=== PATIENT | male | born 2000 | race Caucasian/White ===

== ENCOUNTER 2020-08-05 16:37 | Emergency (ER) | payer BC ==
[~2020-08-05] VITALS: Ht 170.2 cm; Wt 59.0 kg
--- NOTE | 2020-08-05 17:40 | EKG ---
[address] [address] Test Date: 2020-08-05 Test Time: 16:53:29 Pat Name: SEAN OROSCO Department: Room: Gender: M Mexican Food Cook: DARIEL : 2000 Requested By: SHERRY BEACH Order Number: [id number] Reading MD: Measurements Intervals [place] Rate: 95 P: 61 OR: 142 QRS: 80 QRSD: 96 T: 24 QT: 334 QTc: 423 Interpretive Statements SINUS RHYTHM NORMAL ECG RI6.02 No previous ECG available for comparison
--- NOTE | 2020-08-05 18:00 | PHYS DOC ---
Past History Past Medical History: No Pertinent History Alcohol Use: Occasionally General Adult EDM: Chief Complaint: CHEST PAIN HPI: HPI: Patient is a 20-year-old male who presents to the emergency room with mid sternal chest pain. Patient reports that the pain has been constant but quit about 10 minutes ago. Pain started about 1530 today when he was getting in the shower. Patient did report some shortness of breath during the chest pain. Denies dizziness. Patient is a current daily smoker. Patient reports that his dad had a pacemaker placed in his 20s but unsure why. Patient states he had vomiting and diarrhea 2 days ago but symptoms resolved that same day. Patient denies taking anything for the pain. "I feel like this chest pain comes and goes and when I push on my chest it seems to feel better, but I do not know what that shows to my head". Patient denies change in pain with movement. Denies health history. Review of Systems: Review of Systems: Constitutional: Denies fever or chills Eyes: Denies change in visual acuity HENT: Denies nasal congestion or sore throat Respiratory: Denies cough, reports shortness of breath Cardiovascular: Reports midsternal chest pain, denies edema GI: Denies abdominal pain, nausea, vomiting, bloody stools or diarrhea : Denies dysuria Musculoskeletal: Denies back pain or joint pain Integument: Denies rash Neurologic: Denies headache, focal weakness or sensory changes Endocrine: Denies polyuria or polydipsia Lymphatic: Denies swollen glands Psychiatric: Denies depression or anxiety Allergies: Allergies: Allergies Coded Allergies Type Severity Reaction Last Updated Verified Penicillins Allergy Unknown 08/05/20 Yes Physical Exam: PE: Constitutional: Well developed, well nourished, no acute distress, non-toxic appearance. [] HENT: Normocephalic, atraumatic, bilateral external ears normal, oropharynx moist, no oral exudates, nose normal. [] Eyes: PERRLA, conjunctiva normal, no discharge. [] Neck: Normal range of motion, no tenderness, supple, no stridor. [] Cardiovascular:Heart rate regular rhythm, no murmur [] Lungs & Thorax: Bilateral breath sounds clear to auscultation Abdomen: Bowel sounds normal, soft, no tenderness, no masses, no pulsatile masses. Skin: Warm, dry, no erythema, no rash. [] Back: No tenderness, no CVA tenderness. [] Extremities: No tenderness, no cyanosis, no clubbing, ROM intact, no edema. [] Neurologic: Alert and oriented X 3, normal motor function, normal sensory function, no focal deficits noted. [] Psychologic: Affect normal, judgement normal, mood normal. [] Current Patient Data: Vital Signs: Vital Signs Date Time Temp Pulse Resp B/P (MAP) Pulse Ox O2 Delivery O2 Flow Rate FiO2 08/05/20 16:50 98.2 95 16 133/79 (97) 98 Room Air EKG: EKG: [] Radiology/Procedures: Radiology/Procedures: [] Heart Score: C/O Chest Pain: Yes HEART Score for Chest Pain: HEART Score for Chest Pain Response (Comments) Value History Slighlty/Non-Suspicious 0 ECG Normal 0 Age < 45 0 Risk Factors 1 or 2 Risk Factors 1 Troponin < Normal Limit 0 Total 1 Risk Factors: Risk Factors: DM, Current or recent (<one month) smoker, HTN, HLP, family history of CAD, obesity. Risk Scores: Score 0 - 3: 2.5% MACE over next 6 weeks - Discharge Home Score 4 - 6: 20.3% MACE over next 6 weeks - Admit for Clinical Observation Score 7 - 10: 72.7% MACE over next 6 weeks - Early Invasive Strategies Course & Med Decision Making: Course & Med Decision Making Pertinent Labs and Imaging studies reviewed. (See chart for details) [] Patient presents to the emergency room with chest pain, midsternal, sharp. Patient's pain started at 3:30 PM but resolved while in the emergency room. Patient is a daily smoker. And also smokes marijuana. Patient is denying any pain at this time. Troponin is negative. Labs are unremarkable. Heart score of 1. Chest x-ray is negative for any acute abnormalities. Patient is hemodynamically stable. Discharging patient to home and follow-up with PCP. Patient most likely has chest wall pain. I gave patient resources for a list of doctors he could follow-up with and establish care. Patient was appreciative and okay with plan. Patient is to return to the emergency room with worsening symptoms or concerns. Dragon Disclaimer: Rajni Disclaimer: This electronic medical record was generated, in whole or in part, using a voice recognition dictation system. Departure Departure: Impression: Primary Impression: Chest wall pain Disposition: 01 DC HOME SELF CARE/HOMELESS Condition: STABLE Referrals: PCP,UNKNOWN (PCP) Patient Instructions: Chest Wall Pain, [id number] Additional Instructions: You were seen in the emergency room for chest pain that resolved once you were in the ER. Your chest x-ray was negative for any acute abnormalities. All of your lab work was unremarkable. Please follow-up with your PCP for further management. Return to the emergency room with worsening symptoms or concerns. EMERGENCY DEPARTMENT GENERAL DISCHARGE INSTRUCTIONS Thank you for coming to [facility] (ED) today and trusting us with you care. We trust that you had a positivie experience in our Emergency Department. If you wish to speak to the department management, you may call the director at [phone]. YOUR FOLLOW UP INSTRUCTIONS ARE FOLLOWS: 1. Do you have a private Doctor? If you do not have a private doctor, please ask for a resource list of physicians or clinics that may be able to assist you with follow up care. 2. The Emergency Physician has interpreted your x-rays. The X-Ray specialist will also review them. If there is a change in the findings, you will be notified in 48 hours when at all possible. 3. A lab test or culture has been done, your results will be reviewed and you will be notified if you need a change in treatment. ADDITIONAL INSTRUCTIONS AND INFORMATION: 1. Your care today has been supervised by a physician who is specially trained in emergency care. Many problems require more than one evaluation for a complete diagnosis and treatment. We recommend that you schedule your follow up appointment as recommended to ensure complete treatment of you illness or injury. If you are unable to obtain follow up care and continue to have a problem, or if your condition worsens, we recommend that you return to the ED. 2. We are not able to safely determine your condition over the phone nor are we able to give sound medical advice over the phone. For these safety reasons, if you call for medical advice we will ask you to come to the ED for further evaluation. 3. If you have any questions regarding these discharge instructions please call the ED at [phone]. SAFETY INFORMATION: In the interest of safety, wellness, and injury prevention; we encourage you to wear your sealbelt, if you smoke; quite smoking, and we encourage family to use a protective helmet for bicycling and other sporting events that present an increased risk for head injury. IF YOUR SYMPTOMS WORSEN OR NEW SYMPTOMS DEVELOP, OR YOU HAVE CONCERNS ABOUT YOUR CONDITION; OR IF YOUR CONDITION WORSENS WHILE YOU ARE WAITING FOR YOUR FOLLOW UP JOZEF OINTMENT; EITHER CONTACT YOUR PRIMARY CARE DOCTOR, THE PHYSICIAN WHOSE NAME AND NUMBER YOU WERE GIVEN, OR RETURN TO THE ED IMMEDIATELY. SHERRY BEACH APRN Aug 05, 2020 18:00
[2020-08-05 18:03] LABS: BASO % 0 % (0-3); EOS # 0.1 x10^3/uL (0.0-0.7); EOS % 1 % (0-3); HEMATOCRIT 47.4 % (39.0-53.0); HEMOGLOBIN 16.5 g/dL (13.0-17.5); LYMPH # 1.3 x10^3/uL (1.0-4.8); LYMPH % 21 % (24-48); MEAN CORPUSCULAR HEMOGLOBIN 30 pg (25-35); MEAN CORPUSCULAR HGB CONC 35 g/dL (31-37); MEAN CORPUSCULAR VOLUME 85 fL (79-100); MONO # 0.7 x10^3/uL (0.0-1.1); MONO % 11 % (0-9); NEUT # 4.2 x10^3uL (1.8-7.7); NEUT % 66 % (31-73); PLATELET COUNT 225 x10^3/uL (140-400); RED BLOOD COUNT 5.56 x10^6/uL (4.30-5.70); RED CELL DISTRIBUTION WIDTH 13.6 % (11.5-14.5); WHITE BLOOD COUNT 6.3 x10^3/uL (4.0-11.0)
[2020-08-05 18:12] LABS: CALCIUM 8.7 mg/dL (8.5-10.1); CREATININE 1.2 mg/dL (0.7-1.3); GFR 76.4; POTASSIUM 3.5 mmol/L (3.5-5.1)
--- NOTE | 2020-08-05 18:48 | RAD ---
Single view chest dated 08/05/2020: No comparison available. Clinical Indication: Chest pain. Findings: Single upright portable exam of the chest was performed. Heart size and mediastinal contours are with in normal limits given technique. The lungs are clear without evidence of focal consolidation. Vascul ar interstitium is within normal limits. Impression:: Negative portable chest. Electronically signed by: Robert Amaya MD (08/05/2020 6:45 PM) DI
[2020-08-05 19:23] VITALS: BP 124/52
== END 2020-08-05 19:20 | disposition home or self-care (01) ==
LOC: ER 16:37
DX: R07.2 Precordial pain (principal); R06.02 Shortness of breath; Z95.0 Presence of cardiac pacemaker; F17.200 Nicotine dependence, unspecified, uncomplicated; Z88.0 Allergy status to penicillin
CPT/HCPCS: 36415; 71045; 80048; 84484; 85025; 93005; 99285-25

== ENCOUNTER 2020-08-10 20:47 | Emergency (ER) | payer BC ==
[~2020-08-10] VITALS: Ht 182.9 cm; Wt 74.9 kg
[2020-08-10] MEDS ORDERED: NAPR375T5 PO (21:14)
[2020-08-10] MEDS ORDERED: ORPH-16 PO (21:14)
--- NOTE | 2020-08-10 21:14 | PHYS DOC ---
Past History Past Medical History: No Pertinent History Past Surgical History: No Surgical History Smoking: Cigarettes Alcohol Use: Occasionally Drug Use: Marijuana General Adult EDM: Chief Complaint: CHEST PAIN HPI: HPI: Patient is a [age] year old [sex] who presents with [] Review of Systems: Review of Systems: Constitutional: Denies fever or chills Eyes: Denies redness or eye pain HENT: Denies nasal congestion or sore throat Respiratory: Denies cough or shortness of breath Cardiovascular: Reports chest pain; denies palpitations GI: Denies abdominal pain, nausea, or vomiting : Denies dysuria or hematuria Musculoskeletal: Denies back pain or joint pain Integument: Denies rash or skin lesions Neurologic: Denies headache, focal weakness or sensory changes Complete systems were reviewed and found to be within normal limits, except as documented in this note. Current Medications: Current Meds: Current Medications Medications (Trade) Dose Ordered Sig/Ivana Start Time Stop Time Status Last Admin Dose Admin Dexamethasone (Decadron) 10 mg 1X ONCE 08/10/20 21:15 08/10/20 21:16 UNV Orphenadrine Citrate (Norflex) 60 mg 1X ONCE 08/10/20 21:15 08/10/20 21:16 UNV Allergies: Allergies: Allergies Coded Allergies Type Severity Reaction Last Updated Verified Penicillins Allergy Unknown 08/05/20 Yes Physical Exam: PE: Constitutional: Well developed, well nourished, no acute distress, non-toxic appearance HENT: Normocephalic, atraumatic Eyes: Conjunctiva normal, no discharge Neck: Normal range of motion, supple Lungs & Thorax: No respiratory distress, equal chest rise and fall, left chest wall pain which is worse with palpation Abdomen: Soft, no tenderness Skin: Warm, dry, no erythema, no rash Extremities: No calf tenderness, ROM intact, no edema Neurologic: Alert and oriented X 3, no focal deficits noted Psychologic: Affect anxious, judgment normal EKG: EKG: @2058 NSR at 79bpm, NO ST elevation, QRS 98ms, QT/QTc 354/407ms Radiology/Procedures: Radiology/Procedures: [] Heart Score: C/O Chest Pain: Yes HEART Score for Chest Pain: HEART Score for Chest Pain Response (Comments) Value History Slighlty/Non-Suspicious 0 ECG Normal 0 Age < 45 0 Risk Factors 1 or 2 Risk Factors 1 Total 1 Risk Factors: Risk Factors: DM, Current or recent (<one month) smoker, HTN, HLP, family history of CAD, obesity. Risk Scores: Score 0 - 3: 2.5% MACE over next 6 weeks - Discharge Home Score 4 - 6: 20.3% MACE over next 6 weeks - Admit for Clinical Observation Score 7 - 10: 72.7% MACE over next 6 weeks - Early Invasive Strategies Course & Med Decision Making: Course & Med Decision Making Pertinent Imaging studies reviewed. (See chart for details) Patient presents with HPI and physical exam concerning for chest wall pain. Patient had been seen on 08/05/20 for same. Labs reviewed from prior visit. Troponin within normal limits at that time. Chest x-ray also stable from previous. EKG today without acute process. Patient with extremely low cardiac risk factors-primarily given age and lack of cocaine abuse. Chest x-ray without acute process. PERC negative. Symptomatic treatment provided. Patient stable for discharge with outpatient follow-up with PCP. Discussed findings and plan with patient and family, who acknowledge understanding and agreement. Rajni Disclaimer: Rajni Disclaimer: This electronic medical record was generated, in whole or in part, using a voice recognition dictation system. PERC Rule for PE PERC Rule for PE Response (Comments) Value Age > 50: No 0 HR > 100: No 0 Sa02 on room air <95%: No 0 Unilateral leg swelling: No 0 Hemoptysis: No 0 Recent surgery or trauma: No 0 Prior PE or DVT: No 0 Hormone use: No 0 Total 0 Departure Departure: Impression: Primary Impression: Chest wall pain Disposition: HOME SELF CARE/HOMELESS Condition: STABLE Referrals: PCP,UNKNOWN (PCP) Patient Instructions: Chest Wall Pain, [id number] Scripts Naproxen (NAPROXEN) 375 Mg Tablet. 375 MG PO TID PRN PRN for PAIN, #20 TAB Prov: FORTUNATO TAN DO 08/10/20 Orphenadrine Citrate (ORPHENADRINE CITRATE) 100 Mg Tablet.er 1 TAB PO BID PRN for MUSCLE PAIN, #14 TAB 0 Refills Prov: FORTUNATO TAN DO 08/10/20 FORTUNATO TAN DO Aug 10, 2020 21:14
[2020-08-10] MEDS ORDERED: ORPHENADRINE CITRATE 60 MG/2 ML VIAL. IM ONE (21:15)
[2020-08-10] MEDS ORDERED: DEXAMETHASONE 4 MG TABLET PO ONE (21:15)
--- NOTE | 2020-08-10 21:36 | RAD ---
Exam: Chest 2 views INDICATION: Chest wall pain TECHNIQUE: Frontal and lateral views the chest Comparisons: 08/05/2020 FINDINGS: The cardiomediastinal silhouette and pulmonary vessels are within normal limits. The lung and pleural spaces are clear. IMPRESSION: No acute cardiopulmonary process. Electronically signed by: Don Leyva MD (08/10/2020 9:34 PM) GABY
[2020-08-10 21:40] VITALS: BP 128/71
--- NOTE | 2020-08-10 23:54 | EKG ---
[address] [address] Test Date: 2020-08-10 Test Time: 20:58:54 Pat Name: SEAN OROSCO Department: Room: Gender: M Transfer Coordinator: : 2000 Requested By: FORTUNATO TAN Order Number: [id number] Reading MD: Measurements Intervals [place] Rate: 79 P: [place]: QRS: 125 QRSD: 98 T: 98 QT: 354 QTc: 407 Interpretive Statements IRREGULAR RHYTHM, NO P-WAVE FOUND ABNORMAL RIGHT AXIS DEVIATION LOW LIMB LEAD VOLTAGE QRS(T) CONTOUR ABNORMALITY CONSISTENT WITH HIGH LATERAL INFARCT AGE UNDETERMINED ABNORMAL ECG RI6.02 No previous ECG available for comparison
== END 2020-08-10 21:40 | disposition home or self-care (01) ==
LOC: ER 20:47
DX: R07.89 Other chest pain (principal); R00.2 Palpitations; F17.210 Nicotine dependence, cigarettes, uncomplicated; Z88.0 Allergy status to penicillin
CPT/HCPCS: 71046; 93005; 96372; 99283; J2360; J8540

== ENCOUNTER 2020-11-03 10:56 | Emergency (ER) | payer BC ==
[~2020-11-03] VITALS: Ht 182.9 cm; Wt 74.0 kg
[~2020-11-03 10:56] MED LIST: NAPR375T5 PO; ORPH-16 PO
[2020-11-03 11:27] VITALS: BP 137/94
--- NOTE | 2020-11-03 12:13 | RAD ---
EXAM: Right long finger, 3 views. HISTORY: Blunt trauma. COMPARISON: None. FINDINGS: 3 views of the right long finger are obtained. There is no fracture, dislocation or subluxa tion. There is no radiodense foreign body. There is incidental sclerosis involving the radial aspect of the fourth distal phalanx likely due to a bone island or melorheostosis. There is no suspicious os seous lesion. IMPRESSION: No acute osseous finding. Electronically signed by: Zayda Marquez MD (11/03/2020 12:10 PM) [id number]
--- NOTE | 2020-11-03 13:01 | PHYS DOC ---
Past History Past Medical History: No Pertinent History Additional Past Medical Histor: ADHD (CHIP RAMÍREZ APRN) Past Surgical History: No Surgical History (CHIP RAMÍREZ APRN) Smoking: Cigarettes Alcohol Use: Occasionally Drug Use: Marijuana (CHIP RAMÍREZ APRN) General Adult EDM: Chief Complaint: FINGER INJURY HPI: HPI: Patient is a 20-year-old male who presents to the ER today for right third finger injury after a rock fell onto his finger yesterday. Patient reports that the pain is constant, does not radiate, he rates it 7 out of 10, no treatment today but yesterday he reports that he took a muscle relaxer and ibuprofen. Patient denies any other injuries, denies difficulty moving finger, severe swelling. (CHIP RAMÍREZ APRN) Review of Systems: Review of Systems: 14 body systems of the review of systems have been reviewed. See HPI for pertinent positive and negative responses, otherwise all other systems are negative, nonpertinent or noncontributory (CHIP RAMÍREZ APRN) Allergies: Allergies: Allergies Coded Allergies Type Severity Reaction Last Updated Verified Penicillins Allergy Unknown 08/05/20 Yes (CHIP RAMÍREZ APRN) Physical Exam: PE: Constitutional: Well developed, well nourished, no acute distress, non-toxic appearance. [] HENT: Normocephalic, atraumatic [] Eyes: PERRL [] Neck: Normal range of motion, no tenderness, supple, no stridor. [] Cardiovascular: Normal peripheral perfusion Lungs & Thorax: No work of breathing, no tachypnea [] Skin: Warm, dry, no erythema, no rash, mild ecchymosis noted to the tip of patient's right third finger proximal to DIP joint [] Back: No tenderness [] Extremities: No tenderness, no cyanosis, no clubbing, ROM intact, no edema. Right third finger: No swelling, range of motion intact, neuro intact, nailbed intact. [] Neurologic: Alert and oriented X 3, normal motor function, normal sensory function, no focal deficits noted. [] Psychologic: Affect normal, judgement normal, mood normal. [] (CHIP RAMÍREZ APRN) Current Patient Data: Vital Signs: Vital Signs Date Time Temp Pulse Resp B/P (MAP) Pulse Ox O2 Delivery O2 Flow Rate FiO2 11/03/20 11:27 99.0 80 16 137/94 (108) 99 Room Air (CHIP RAMÍREZ APRN) EKG: EKG: [] (CHIP RAMÍREZ APRN) Radiology/Procedures: Radiology/Procedures: PROCEDURE: FINGER(S) RIGHT EXAM: Right long finger, 3 views. HISTORY: Blunt trauma. COMPARISON: None. FINDINGS: 3 views of the right long finger are obtained. There is no fracture, dislocation or subluxation. There is no radiodense foreign body. There is incidental sclerosis involving the radial aspect of the fourth distal phalanx likely due to a bone island or melorheostosis. There is no suspicious osseous lesion. IMPRESSION: No acute osseous finding. Electronically signed by: Zayda Ansari MD (11/03/2020 12:10 PM) [id number] DICTATED AND SIGNED BY: ZAYDA ANSARI MD DATE: 11/03/20 1203 CC: MARCIA PEDROZA DO; CHIP RAMÍREZ APRN; PCP,UNKNOWN ~MTH0 0 (CHIP RAMÍREZ APRN) Heart Score: C/O Chest Pain: No Risk Factors: Risk Factors: DM, Current or recent (<one month) smoker, HTN, HLP, family history of CAD, obesity. Risk Scores: Score 0 - 3: 2.5% MACE over next 6 weeks - Discharge Home Score 4 - 6: 20.3% MACE over next 6 weeks - Admit for Clinical Observation Score 7 - 10: 72.7% MACE over next 6 weeks - Early Invasive Strategies (CHIP RAMÍREZ APRN) Course & Med Decision Making: Course & Med Decision Making Pertinent Labs and Imaging studies reviewed. (See chart for details) Patient was seen in the ER today after having a rock fall onto his right third finger yesterday. Patient has range of motion and neuro intact to finger with nailbed intact. X-ray was negative for any acute fractures as read by the radiologist. Patient's finger was cleansed with warm water and soap and it was placed in an aluminum finger splint. Patient given education regarding RICE to help with finger pain. Patient agreeable to plan of care (CHIP RAMÍREZ APRN) Course & Med Decision Making I oversaw on the above date of service of this patient. This patient was evaluated, examined, treated, and dispositioned from the emergency department by the mid-level practitioner. I oversaw and reviewed care of patient while in ER prior to departure. I reviewed note and agree to findings, plan of care, and disposition as stated. Electronically signed, Marcia Pedroza DO (MARCIA PEDROZA DO) Rajni Disclaimer: Rajni Disclaimer: This electronic medical record was generated, in whole or in part, using a voice recognition dictation system. (CHIP RAMÍREZ HOT BOX SPOTTER) Departure Departure: Impression: Primary Impression: Finger contusion Qualified Codes: S60.131A - Contusion of right middle finger with damage to nail, initial encounter Disposition: HOME / SELF CARE / HOMELESS Condition: GOOD Referrals: PCP,UNKNOWN (PCP) Additional Instructions: You were seen in the ER today for a finger injury. An x-ray was performed that was negative for any acute fractures of the bones but you do have a soft tissue injury. Please continue to wear aluminum finger splint. You can take Tylenol or ibuprofen for pain. You can also apply ice and elevate for swelling. If your symptoms worsen or persist you can return to the ER. If you develop increased pain, difficulty moving finger, or severe swelling please return. EMERGENCY DEPARTMENT GENERAL DISCHARGE INSTRUCTIONS Thank you for coming to [facility] (ED) today and trusting us with you care. We trust that you had a positivie experience in our Emergency Department. If you wish to speak to the department management, you may call the director at [phone]. YOUR FOLLOW UP INSTRUCTIONS ARE FOLLOWS: 1. Do you have a private Doctor? If you do not have a private doctor, please ask for a resource list of physicians or clinics that may be able to assist you with follow up care. 2. The Emergency Physician has interpreted your x-rays. The X-Ray specialist will also review them. If there is a change in the findings, you will be notified in 48 hours when at all possible. 3. A lab test or culture has been done, your results will be reviewed and you will be notified if you need a change in treatment. ADDITIONAL INSTRUCTIONS AND INFORMATION: 1. Your care today has been supervised by a physician who is specially trained in emergency care. Many problems require more than one evaluation for a complete diagnosis and treatment. We recommend that you schedule your follow up appointment as recommended to ensure complete treatment of you illness or injury. If you are unable to obtain follow up care and continue to have a problem, or if your condition worsens, we recommend that you return to the ED. 2. We are not able to safely determine your condition over the phone nor are we able to give sound medical advice over the phone. For these safety reasons, if you call for medical advice we will ask you to come to the ED for further evaluation. 3. If you have any questions regarding these discharge instructions please call the ED at [phone]. SAFETY INFORMATION: In the interest of safety, wellness, and injury prevention; we encourage you to wear your sealbelt, if you smoke; quite smoking, and we encourage family to use a protective helmet for bicycling and other sporting events that present an increased risk for head injury. IF YOUR SYMPTOMS WORSEN OR NEW SYMPTOMS DEVELOP, OR YOU HAVE CONCERNS ABOUT YOUR CONDITION; OR IF YOUR CONDITION WORSENS WHILE YOU ARE WAITING FOR YOUR FOLLOW UP APPOINTMENT; EITHER CONTACT YOUR PRIMARY CARE DOCTOR, THE PHYSICIAN WHOSE NAME AND NUMBER YOU WERE GIVEN, OR RETURN TO THE ED IMMEDIATELY. CHIP RAMÍREZ APRN Nov 03, 2020 13:01 MARCIA PEDROZA DO Nov 04, 2020 07:12
== END 2020-11-03 13:08 | disposition home or self-care (01) ==
LOC: ER 10:56
DX: S60.031A Contusion of right middle finger without damage to nail, initial encounter (principal); F17.210 Nicotine dependence, cigarettes, uncomplicated; F12.10 Cannabis abuse, uncomplicated; Z88.0 Allergy status to penicillin; W18.39XA Other fall on same level, initial encounter; Y93.89 Activity, other specified; Y92.89 Other specified places as the place of occurrence of the external cause; Y99.8 Other external cause status
CPT/HCPCS: 29130; 73140; 99283-25